=== PATIENT | female | born 1950 | race Caucasian/White ===

== ENCOUNTER 2022-09-18 08:19 | Day surgery (SDC) | payer MEDICARE, SELFPAY ==
--- NOTE | 2022-09-18 06:49 | W.ANESPRE ---
General Info Date of Service Date Performed: 09/18/22 Height: 5 ft 6.5 in Weight: 97.6 kg Body Mass Index (BMI): 34.2 Surgical Procedure: Operation Date: 09/18/22 09:55 Proposed Procedure Side Surgeon p Cataract Extraction with IOL Implant Left Dutch Dawkins MD Meds Allergies and Home Medications Allergies Allergy/AdvReac Type Severity Reaction Status Date / Time lactose AdvReac Mild Other (See Verified 09/18/22 09:03 Comment) Dairy causes stomach pain Home Medication Medication Instructions Recorded acetaminophen 325 mg tablet 650 mg PO PRN PRN 09/14/22 albuterol sulfate 90 mcg/actuation 2 puff inhalation Q4H PRN 09/14/22 aerosol inhaler aspirin 81 mg tablet,delayed 81 mg PO DAILY 09/14/22 release gabapentin 300 mg capsule 300 mg PO TID 09/14/22 ibuprofen 200 mg capsule 200 mg PO Q6H PRN 09/14/22 lisinopril 5 mg tablet 5 mg PO DAILY 09/14/22 nitroglycerin 0.4 mg sublingual 0.4 mg sublingual Q5M PRN 09/14/22 tablet nortriptyline 10 mg capsule 10 mg PO QHS 09/14/22 pravastatin 20 mg tablet 20 mg PO DAILY 09/14/22 trospium 20 mg tablet 20 mg PO QAM AND QHS 09/14/22 Current Visit Medications: Current Medications Generic Name Dose Route Start Last Admin Trade Name Freq PRN Reason Stop Dose Admin Acetaminophen 1,000 mg 09/18/22 06:00 Acetaminophen 500 Mg Tab PO Q4H PRN PRN Balanced Salt Solution 500 ml 09/18/22 06:00 Balanced Salt Soln.-Plus 500 Ml Bag OP DIRECTED [facility] Miscellaneous Medication 0 ml 09/18/22 06:00 Prednisolone 1%, Moxifloxacin 0.5%, Nepafenac 0.1% 5ml Btl OS DIRECTED [facility] Miscellaneous Medication 0 ml 09/18/22 06:00 Tropicam./Phenyleph. (1/2.5%) 5 Ml Btl OS DIRECTED [facility] Tetracaine HCl 0 ml 09/18/22 06:00 Tetracaine 0.5% 4 Ml Btl OS DIRECTED [facility] PFS Active Problems Active Problems: Problem Status Onset Code Posterior subcapsular age-related cataract of left eye H25.042 Nuclear age-related cataract, left eye H25.12 Medical History Medical History (Updated 09/18/22 @ 09:26 by [facility]) CAD (coronary artery disease) ECHO 2016 EF 45%, inferior hypokinesis, LCx distribution akinesis, mild-mod. MR, Cardiac cath. 2V CAD (LAD and LCx), KARTHIKEYAN to 95% stenosis, residual nonobstructive CAD of LAD (40-60%) Cataract Cervical cancer GI bleed Hypercholesteremia Hypertension Low back pain Obesity Presence of colostomy Rectal cancer Right knee meniscal tear Sciatica STEMI (ST elevation myocardial infarction) 2016 Surgical History Surgical History (Updated 09/18/22 @ 09:26 by [facility]) History of cardiac catheterization History of rectal surgery History of surgery Cardiac stent to circumflex artery Hx of foot surgery bilateral Vital Signs and Lab Results Lab Results Blood Type / Crossmatch: No Data to Display Complete Blood Count: No Data to Display Complete Metabolic Panel: No Data to Display Liver Function Panel: No Data to Display Coagulation Panel: No Data to Display Cardiac Panel: No Data to Display Arterial Blood Gas: No Data to Display Venous Blood Gas: No Data to Display Pancreas Panel: No Data to Display Thyroid Panel: No Data to Display Infectious Disease: No Data to Display Blood Cultures: No Data to Display Toxicology Panel: No Data to Display Anesthesia Assessment and Plan Anesthesia History Personal History: No History of Anesthesia Complications Family History: No Family History of Anesthesia Complications Exercise Tolerance Exercise Tolerance: Metabolic Equivalents>4 Pertinent Negatives Pertinent Negatives: No Symptoms of GERD, No Major Pulmonary Symptoms or Complaints and No History of CVA/TIA Cardiac & Pulmonary Exam Cardiac Exam: Normal S1/S2 Heart Sounds Pulmonary Exam: Clear Bilateral Breath Sounds Implantable Cardiac Device Does patient have a Pacemaker or an ICD?: No Airway Exam Known Difficult Airway: No Mallampati Class: 2 Mouth Opening: Normal (> 3cm) Thyromental Distance: Greater than 3 cm Neck Range of Motion: Full ROM Neck Circumference: Normal Teeth Condition: Normal Dentition ASA Classification ASA Score: ASA 3 Emergency Case?: No NPO Status NPO Status: NPO Clears >2 hours, Solids >8 hours Anesthesia Plan Resuscitation Status: Full Code Anesthesia Technique: MAC Anesthesia Airway Planned: Natural Airway Monitors Used: Standard Monitors Preoperative Comments:: History of STEMI, cardiac cath in 2016. More recent colon and cervical cancer, patient has completed treatment and is doing well. Discussed MKO vs no MKO. Would like to try without MKO.
[2022-09-18] MEDS: Tropicam./Phenyleph. (1/2.5%) 5 ML BTL OS ×3 (09:15→09:29)
[2022-09-18 09:17] VITALS: BP 126/66; PULSE 78; RESP 18; TEMP 36.4; O2SAT 100
[2022-09-18 09:34] VITALS: BMI 34.2
[2022-09-18] MEDS: Tetracaine 0.5% 4 ML BTL OS (09:37)
[2022-09-18] MEDS: Balanced Salt Soln.-PLUS 500 ML BAG OP (09:44)
[2022-09-18] MEDS: Lidocaine 1% Pres-Free 5 ML VIAL (09:45)
[2022-09-18] MEDS: Duovisc Viscoelastic System EACH 1 EACH (09:45)
[2022-09-18] MEDS: Phenylephrine/Lidocaine (15/10) MG/ML 1 ML VIAL (09:46)
[2022-09-18] MEDS: Povidone-Iodine Ophth 30 ML BTL (09:47)
[2022-09-18] MEDS: Trypan Blue 0.06% 0.5 ML SYR (09:47)
--- NOTE | 2022-09-18 10:06 | ROE_ITS ---
Date of service: 09/18/22 Time of Service: 10:06 Operative Note Operative Note DATE OF PROCEDURE: 09/18/22 PRE-OP DIAGNOSIS: Nuclear/posterior subcapsular cataract, left eye POST-OP DIAGNOSIS: same PROCEDURE: Cataract extraction using phacoemulsification with intraocular lens implant, left eye SURGEON: Dutch Dawkins ANESTHESIA TYPE: Local By Surgeon and MAC Refer to Anesthesia Record PATHOLOGY: none sent COMPLICATIONS: None Patient was transported to: same day Patient's condition: stable Implants: Valentino and Valentino Tecnis Eyhance [id number] Indications: Progressive decreased vision due to cataract, left eye Procedure Description: CATARACT SURGERY OPERATIVE REPORT PREOPERATIVE DIAGNOSIS: 1. Nuclear/posterior subcapsular cataract, left eye POSTOPERATIVE DIAGNOSIS: Same OPERATION: 1. Cataract extraction using phacoemulsification with posterior chamber intraocular lens implant, left eye. IOL: IOL Drill Rig Operator Helper/Model: Valentino & Valentino Tecnis Eyhance DIB00 IOL Power: + 22.5 diopters IOL Serial Number: [id number] Optic Diameter: 6.0 mm Haptic/Overall Diameter: 13.0 mm PHACO INFO: [place] Genniusurion Vision System with OZil and Active Fluidics Cumulative Dispersed Energy (CDE): 14.14 seconds SURGEON: Dutch Dawkins MD, KARLI ANESTHESIA: Monitored A [facility] (MAC), with local sub-tenon's anesthetic infiltration COMPLICATIONS: None SPECIMENS: None INDICATIONS FOR PROCEDURE: The patient is a 72-year-old lady with history of progressive decreased vision in her left eye secondary to the development of significant nuclear/posterior subcapsular cataract. She is significantly symptomatic that she desires cataract surgery and attempt to improve and maximize her vision. The option of cataract surgery was offered to the patient and she wished to proceed. See office notes for detailed information. PROCEDURE: The correct surgical eye was identified and marked as the left eye and the pupil was dilated in the preoperative area using mydriatics and cycloplegics. The dilated pupil size was 7.0 mm. The patient elected to proceed without oral sedation. The patient was brought to the operating room where cardiopulmonary monitoring was instituted and surgical time-out was p erformed, confirming the correct operative eye and IOL power. Topical anesthesia was administered and ophthalmic povidone-iodine 5% was instilled into the conjunctival fornices. The melissa-ocular area was prepped with Betadine 10% solution and draped in the usual sterile fashion for intraocular surgery, including an aperture drape. A Tegaderm transparent film dressing was cut in half and used to cover the lashes and lid margins. Care was taken to sequester the lashes and lid margins under the Tegaderm dressing. A lid speculum was placed between the lids of the operative eye and the [place] LuxOR Revalia operating microscope was maneuvered into position. Felix scissors were then used to make a conjunctival buttonhole approximately 6mm posterior to the limbus in the inferonasal quadrant. Blunt dissection was carried out to expose bare sclera, and a blunt-tipped sub-tenon?s anesthesia cannula was introduced and passed posteriorly along the globe where non- preserved plain lidocaine was injected into posterior sub-Tenon?s space. A sideport knife was used to make a paracentesis port superiorly/superiortemporally. VisionBlue was injected into the anterior chamber and allowed to sit for 15 to 20 seconds. Intraocular phenylephrine/lidocaine was injected int the anterior chamber.. The anterior chamber was filled with viscoelastic. A keratome knife was used to construct a 2-plane near-clear corneal tunnel extending 2.0mm into clear cornea temporally. A flap was raised on the anterior capsule and capsulorhexis forceps were used to complete a continuous curvilinear capsulorhexis of 5.5 mm. Balanced salt solution was then used to perform cortical cleaving hydrodissection and nuclear hydrodelineation until the lens could be freely rotated within the capsular bag. The lens nucleus was then disassembled and removed within the capsular bag and iris plane using phacoemulsification. Residual cortical material was removed using the 45-degree angled silicone I/A tip with 0.3mm port. The posterior capsule was carefully polished to remove as much residual lens epithelial cells as safely possible. The capsular bag was then inflated and the anterior chamber deepened with viscoelastic. The lens implant described above was inserted into the capsular bag using the Valentino and Valentino Simplicity pre-loaded injector. . A Kuglen hook was used to dial the IOL into position. Residual viscoelastic was then removed first from posterior to the IOL, then from the anterior chamber using the I/A handpiece. The lens implant was noted to center nicely within the capsular bag. The incisions were stromally hydrated, and the anterior chamber was reformed using BSS. Then 0.5cc of moxifloxacin 1.0mg/ml were injected into the capsular bag and anterior chamber. The incisions were checked with a Weck spear and found to be secure. Several drops of ophthalmic povidone-iodine 5% were then applied to the eye followed by two drops of Imprimis combination prednisolone/moxifloxacin/nepafenac solution. The drapes were removed and a clear plastic protective eye shield was placed over the eye. The patient was then returned to [facility] Day Surgery in stable condition.
--- NOTE | 2022-09-18 10:06 | W.PM.DSUDISC ---
Date of service: 09/18/22 Time of Service: 10:06 Discharge Plan Disposition Patient Disposition: Home Discharge Details Attending Provider: Dutch Dawkins Primary Care Provider: Dali Pierce Home Meds and New Rx's Prescriptions: No Action acetaminophen 325 mg Tablet 650 mg PO PRN PRN ibuprofen 200 mg Capsule 200 mg PO Q6H PRN aspirin 81 mg Tablet,Delayed Release (Dr/Ec) 81 mg PO DAILY nortriptyline 10 mg Capsule 10 mg PO QHS nitroglycerin 0.4 mg Tablet, Sublingual 0.4 mg SUBLINGUAL Q5M PRN Rx Instructions: do not exceed 3 doses per episode gabapentin 300 mg Capsule 300 mg PO BID pravastatin 20 mg Tablet 20 mg PO DAILY Patient Comments: Per MD currently not taking lisinopril 5 mg Tablet 5 mg PO DAILY albuterol sulfate 90 mcg/actuation Hfa Aerosol Inhaler 2 puff INHALATION Q4H PRN trospium 20 mg Tablet 20 mg PO QAM AND QHS Patient Comments: Pt has not started Rx Instructions: administer on an empty stomach Discharge Instructions Stand Alone Forms: Post-op Topical Cataract, Miguel Ganey (DSU) Discharge Orders Discharge Orders: Discharge Order (Routine); Ordered 09/18/22 Ordered By: Dutch Dawkins DS: Diagnosis Discharge Diagnosis (1) Nuclear age-related cataract, left eye: Status: Resolved (2) Posterior subcapsular age-related cataract of left eye: Status: Resolved
[2022-09-18 10:07] VITALS: BP 141/67; PULSE 74; RESP 18; TEMP 36.2; O2SAT 100
--- NOTE | 2022-09-18 10:24 | W.ANESPOSTOP ---
Postoperative Evaluation Date, Time and Location Date Performed: 09/18/22 Time Performed: 10:08 Patient Location: Day Surgery Unit Vital Signs Most Recent Imported Vital Signs: Most Recent Vital Signs Temp Pulse Resp BP Pulse Ox 36.2 C L 74 18 141/67 H 100 09/18/22 10:07 09/18/22 10:07 09/18/22 10:07 09/18/22 10:09/18/22 10:07 Pain Score Most Recent Pain Score: Most Recent Pain Score Pain Level 1 09/18/22 09:17 Assessment Mental Status: Awake (Alert & Oriented to Patient Baseline) Airway and Respiratory Function: Patent airway with normal (patient baseline) respiratory exam Cardiovascular Function: Hemodynamically Stable Hydration Status: Adequately Hydrated Nausea & Vomiting: No Nausea or Vomiting Pain: Pt. Denies Any Pain Peripheral Nerve Block: Other (Local by Dr. Dawkins)
== END 2022-09-18 10:40 | disposition home or self-care (01) ==
PROVIDERS: PCP Internal Medicine; Visit Provider Ophthalmology
PROC: (CPT 66984; principal; 2022-09-18 09:45)
DX: H25.12 Age-related nuclear cataract, left eye (principal); H25.042 Posterior subcapsular polar age-related cataract, left eye; I10 Essential (primary) hypertension
CPT/HCPCS: 66984; V2632